=== PATIENT | male | born 1990 | race Caucasian/White ===

== ENCOUNTER 2020-02-24 09:30 | Emergency (ER) | payer OTHER ==
[~2020-02-24] VITALS: Ht 172.7 cm; Wt 81.6 kg
--- NOTE | 2020-02-24 09:40 | NUR ---
PT AMBULATORY TO ER BED 04 C/O DIZZINESS SINCE THURSDAY. PT STATES ITS WORST TODAY. ENDORSES NAUSEA TODAY. GOWNED AND PLACED ON MONITOR. VSS. AWATING MD [place].
--- NOTE | 2020-02-24 09:55 | NUR ---
DR ONEILL AT BEDSIDE FOR EVAL.
--- NOTE | 2020-02-24 10:03 | NUR ---
WHEELED OUT VIA [facility]ANE BY [employer] FOR CT SCAN
[2020-02-24 10:06] LABS: BASOPHILS % (AUTO) 0.7 % (0.0-2.0); EOSINOPHILS % (AUTO) 3.7 % (0.0-6.0); HEMATOCRIT 43 % (39-51); LYMPHOCYTES # (AUTO) 1.3 /CMM (0.8-4.8); LYMPHOCYTES % (AUTO) 25.5 % (20.0-44.0); MEAN CORPUSCULAR HGB CONC 35 g/dl (31.0-36.0); MEAN CORPUSCULAR VOLUME 91 fL (80-96); MONOCYTES # (AUTO) 0.4 /CMM (0.1-1.30); MONOCYTES % (AUTO) 8.4 % (2.0-12.0); NEUTROPHILS # (AUTO) 3.2 /CMM (1.8-8.9); NEUTROPHILS % (AUTO) 61.7 % (43.0-81.0); PLATELET COUNT (AUTO) 213 /CMM (150-450); RED BLOOD CELL COUNT(AUTO) 4.72 MIL/uL (4.5-6.0); WHITE BLOOD COUNT (AUTO) 5.2 K/uL (4.3-11.0)
[2020-02-24] MEDS ORDERED: MECLIZINE HCL 25 MG TABLET ONE (10:07)
[2020-02-24] MEDS ORDERED: LORAZEPAM INJ 2 MG/ML VIAL ONE (10:09)
[2020-02-24 10:11] LABS: CALCIUM, SERUM 8.7 mg/dL (8.5-10.1); CREATININE 1.2 mg/dL (0.6-1.3); POTASSIUM 4.1 mmol/L (3.5-5.1)
[2020-02-24] MEDS: LORAZEPAM INJ 2 MG/ML VIAL IV ONE (10:25)
[2020-02-24] MEDS: MECLIZINE HCL 12.5 MG TABLET PO ONE (10:25)
[2020-02-24 11:44] VITALS: BP 132/87
--- NOTE | 2020-02-24 11:44 | NUR ---
Patient discharged to home in stable condition. Written and verbal after care instructions given. Patient verbalizes understanding of instruction.IV removed. Catheter intact and site benign. Pressure and 4x4 applied to site. No bleeding noted.
== END 2020-02-24 11:45 | disposition home or self-care (01) ==
LOC: ER 09:33
DX: H81.399 Other peripheral vertigo, unspecified ear (principal); R11.0 Nausea
CPT/HCPCS: 36415; 70450; 80048; 85025; 93005; 96374; 99285; J2060; J8597